=== PATIENT | male | born 1970 | race Caucasian/White ===

== ENCOUNTER 2017-05-04 12:50 | Emergency (ER) | payer OTHER, BC ==
[~2017-05-04] VITALS: Ht 185.4 cm; Wt 135.6 kg
[~2017-05-04 12:50] MED LIST: FLAGYL500 MG PO; LEVAQUIN750 MG PO
[2017-05-04] MEDS ORDERED: MOTRIN600 MG PO (14:54)
[2017-05-04 15:17] VITALS: BP 126/73
== END 2017-05-04 15:23 | disposition home or self-care (01) ==
LOC: EME 12:50
DX: S80.12XA Contusion of left lower leg, initial encounter (principal); S86.912A Strain of unspecified muscle(s) and tendon(s) at lower leg level, left leg, initial encounter; V43.62XA Car passenger injured in collision with other type car in traffic accident, initial encounter; Y92.410 Unspecified street and highway as the place of occurrence of the external cause
CPT/HCPCS: 73590; 99281; 99283

== ENCOUNTER 2017-09-11 17:49 | Emergency (ER) | payer BC ==
[~2017-09-11] VITALS: Ht 185.4 cm; Wt 134.7 kg
[~2017-09-11 17:49] MED LIST changes: +MOTRIN600 MG PO
[2017-09-11 18:47] LABS: APPEARANCE CLEAR ((CLEAR)); BILIRUBIN NEGATIVE; BLOOD NEGATIVE; COLOR YELLOW ((YELLOW)); GLUCOSE (STRIP) NEGATIVE; KETONES NEGATIVE; LEUKOCYTES NEGATIVE; NITRITE NEGATIVE; PROTEIN (STRIP) 30; SPECIFIC GRAVITY 1.026 (1.000-1.030)
[2017-09-11 18:51] LABS: SOURCE URINE
[2017-09-11] MEDS ORDERED: CIPRO500 MG PO (19:16)
[2017-09-11] MEDS ORDERED: PYRIDIUM100 MG PO (19:16)
[2017-09-11 19:37] VITALS: BP 117/83
[2017-09-14 12:45] LABS: CHLAMYDIA TRACHOMATIS NEGATIVE; NEISSERIA GONORRHOEAE NEGATIVE
== END 2017-09-11 19:45 | disposition home or self-care (01) ==
LOC: EME 17:49
PROVIDERS: Nurse Practitioner Family
DX: N39.0 Urinary tract infection, site not specified (principal); Z87.19 Personal history of other diseases of the digestive system
CPT/HCPCS: 81003; 87491; 87591; 99281; 99284